=== PATIENT | female | born 1980 ===

== ENCOUNTER 2017-05-05 17:33 | Emergency (ER) | payer BC, OTHER ==
[2016-02-23 08:47] VITALS: BMI 24.7
== END 2017-05-05 21:20 | disposition home or self-care (01) ==
LOC: H.ER 17:33
DX: N20.1 Calculus of ureter (principal)

== ENCOUNTER 2017-05-05 21:15 | Observation (INO) | payer OTHER ==
[2017-05-05 23:37] VITALS: BMI 23.7
[2017-05-06] MEDS ORDERED: Sodium Chloride 0.9% 1,000 ML IV SCH (00:30)
[2017-05-06] MEDS ORDERED: Midazolam 2 MG/2 ML VIAL ONE (09:18)
[2017-05-06] MEDS ORDERED: Propofol 10 mg/ml Inj (20 ML) ONE (09:18)
[2017-05-06 10:04] LABS: GLUCOSE,RANDOM 102 mg/dL (65-105)
[2017-05-06 10:05] LABS: BLOOD UREA NITROGEN 14 mg/dl (7-17); CALCIUM 8.9 mg/dL (8.4-10.2); CARBON DIOXIDE 23 mmol/L (22-30); CHLORIDE 106 mmol/L (98-107); GFR AFRICAN-AMERICAN > 60; POTASSIUM 3.7 MMOL/L (3.6-5.0); SODIUM 140 mmol/l (132-148); TOTAL PROTEIN 7.3 G/DL (6.3-8.2)
[2017-05-06 10:06] LABS: ALB/GLOB RATIO 1.4 (1.0-2.1); BILIRUBIN,TOTAL 0.2 mg/dl (0.2-1.3)
[2017-05-06 10:07] LABS: ALKALINE PHOSPHATASE 80 U/L (38-126); ALT/SGPT 33 U/L (9-52); AST/SGOT 26 U/L (14-36)
[2017-05-06 11:02] LABS: BASO % 0.4 % (0.0-2.0); EOS # 0.1 K/uL (0.0-0.7); EOS % 0.9 % (0.0-4.0); HEMATOCRIT 36.7 % (34.0-47.0); LYMPH # 1.1 K/uL (1.0-4.3); LYMPH % 10.6 % (20.0-40.0); MEAN CELL VOLUME 87.8 fl (81.0-99.0); MEAN CORPUSCULAR HEMOGLOBIN 28.6 pg (27.0-31.0); MEAN CORPUSCULAR HGB CONC 32.6 g/dL (33.0-37.0); MEAN PLATELET VOLUME 9.2 fl (7.2-11.7); MONO # 0.5 K/uL (0.0-0.8); MONO % 4.8 % (0.0-10.0); NEUT # 8.5 K/uL (1.8-7.0); NEUT % 83.3 % (50.0-75.0); RED CELL DISTRIBUTION WIDTH 13.9 % (11.5-14.5); WHITE BLOOD COUNT 10.2 K/uL (4.8-10.8)
[2017-05-06] MEDS ORDERED: Chlorhexidine Gluconate 2OZ GEL TP ONE ×2 (11:52→12:25)
[2017-05-06] MEDS ORDERED: Iohexol 240 200 ML IJ ONE (11:53)
[2017-05-06] MEDS ORDERED: Sodium Chloride 0.9% 1,000 ML IV ONE (12:05)
--- NOTE | 2017-05-06 14:35 | RAD ---
PROCEDURE: Intraoperative Fluoroscopy. HISTORY: OR FINDINGS: Fluoroscopic assistance was provided. . Please refer to the operative report from for additional details.
[2017-05-06 14:36] VITALS: RESP 20
[2017-05-06] MEDS ORDERED: Oxycodone/Acetaminophen 5/325 mg Tab PO PRN (15:09)
--- NOTE | 2017-05-06 15:42 | CP.PCM.DIS ---
Provider - Provider Date of Admission: 05/05/17 21:15 Attending physician: Jose Alonso Primary care physician: Nighat Weston MD Consults: Urology : Dr Hmuphreys Time Spent in preparation of Discharge (in minutes): 25 Diagnosis - Discharge Diagnosis (1) Ureteral stone with hydronephrosis Status: Acute Hospital Course - Lab Results Lab Results: Most Recent Lab Values WBC 10.2 K/uL (4.8-10.8) 05/05/17 18:00 RBC 4.18 Mil/uL (3.80-5.20) 05/05/17 18:00 Hgb 12.0 g/dL (12.0-16.0) 05/05/17 18:00 Hct 36.7 % (34.0-47.0) 05/05/17 18:00 MCV 87.8 fl (81.0-99.0) 05/05/17 18:00 MCH 28.6 pg (27.0-31.0) 05/05/17 18:00 MCHC 32.6 g/dL (33.0-37.0) L 05/05/17 18:00 RDW 13.9 % (11.5-14.5) 05/05/17 18:00 Plt Count 253 K/uL (130-400) 05/05/17 18:00 MPV 9.2 fl (7.2-11.7) 05/05/17 18:00 Neut % (Auto) 83.3 % (50.0-75.0) H 05/05/17 18:00 Lymph % (Auto) 10.6 % (20.0-40.0) L 05/05/17 18:00 Mercer % (Auto) 4.8 % (0.0-10.0) 05/05/17 18:00 Eos % (Auto) 0.9 % (0.0-4.0) 05/05/17 18:00 Baso % (Auto) 0.4 % (0.0-2.0) 05/05/17 18:00 Neut # 8.5 K/uL (1.8-7.0) H 05/05/17 18:00 Lymph # 1.1 K/uL (1.0-4.3) 05/05/17 18:00 Mercer # 0.5 K/uL (0.0-0.8) 05/05/17 18:00 Eos # 0.1 K/uL (0.0-0.7) 05/05/17 18:00 Baso # 0.0 K/uL (0.0-0.2) 05/05/17 18:00 Sodium 140 mmol/l (132-148) 05/05/17 18:00 Potassium 3.7 MMOL/L (3.6-5.0) 05/05/17 18:00 Chloride 106 mmol/L (98-107) 05/05/17 18:00 Carbon Dioxide 23 mmol/L (22-30) 05/05/17 18:00 Anion Gap 15 (10-20) 05/05/17 18:00 BUN 14 mg/dl (7-17) 05/05/17 18:00 Creatinine 0.8 mg/dL (0.7-1.2) 05/05/17 18:00 Est GFR ( Amer) > 60 05/05/17 18:00 Est GFR (Non-Af Amer) > 60 05/05/17 18:00 Random Glucose 102 mg/dL (65-105) 05/05/17 18:00 Calcium 8.9 mg/dL (8.4-10.2) 05/05/17 18:00 Total Bilirubin 0.2 mg/dl (0.2-1.3) 05/05/17 18:00 AST 26 U/L (14-36) 05/05/17 18:00 ALT 33 U/L (9-52) 05/05/17 18:00 Alkaline Phosphatase 80 U/L (38-126) 05/05/17 18:00 Total Protein 7.3 G/DL (6.3-8.2) 05/05/17 18:00 Albumin 4.3 g/dL (3.5-5.0) 05/05/17 18:00 Globulin 3.0 gm/dL (2.2-3.9) 05/05/17 18:00 Albumin/Globulin Ratio 1.4 (1.0-2.1) 05/05/17 18:00 - Hospital Course Hospital Course: 36 y/o lady, no significant PMH came in bec of severe flank pain left. CT scan showed 8 mm left ureteral stone with Hydropnephrosis. Pt was admitted to Med Surg. She was started on IVF hydration and pain mgt. IV Ceftriaxone given. Urology was consulted- Dr Mattson. Pt then underwent Cystoscopy with Left Ureteral Stent Placement. Cleared by Dr Mattson for discharge. Pt to ff up with Urology for Lithotripsy as outpt. RX for Flomax, Vicodin and Macrobid prescibed by Dr Mattson for home . Discharge Exam - Head Exam Head Exam: ATRAUMATIC, NORMAL INSPECTION, NORMOCEPHALIC - Eye Exam Eye Exam: EOMI, Normal appearance, PERRL Pupil Exam: NORMAL ACCOMODATION - ENT Exam ENT Exam: Mucous Membranes Moist, Normal External Ear Exam - Neck Exam Neck exam: Full Rom - Respiratory Exam Respiratory Exam: NORMAL BREATHING PATTERN. absent: Respiratory Distress - Cardiovascular Exam Cardiovascular Exam: REGULAR RHYTHM, +S1, +S2 - GI/Abdominal Exam GI & Abdominal Exam: Normal Bowel Sounds, Soft, Tenderness (minimal left sided tenderness) - Extremities Exam Extremities exam: full ROM, normal capillary refill, normal inspection, pedal pulses present - Back Exam Back exam: CVA tenderness (L), CVA tenderness (R), FULL ROM, NORMAL INSPECTION. absent: paraspinal tenderness, vertebral tenderness - Neurological Exam Neurological exam: Alert, CN II-XII Intact, Oriented x3 - Psychiatric Exam Psychiatric exam: Normal Affect, Normal Mood - Skin Skin Exam: Dry, Normal Color, Warm Discharge Plan - Discharge Medications Prescriptions: Hydrocodone/Acetaminophen [Vicodin Es 300 mg-7.5 mg] 1 tab PO Q6 #20 tab Nitrofurantoin Macrocrystals [Macrobid] 100 mg PO BID #20 cap Tamsulosin HCl [Flomax] 0.4 mg PO DAILY #30 cap.er.24h - Follow Up Plan Condition: GOOD Disposition: HOME/ ROUTINE Additional Instructions: ff up with Dr Mattson next wk for further mgt of stone and removal stent ff up with PMD bel Referrals: Nighat Weston MD [Primary Care Provider] -
[2017-05-06 18:10] VITALS: BP 103/61; PULSE 66; TEMP 98.5; O2SAT 98
--- NOTE | 2017-05-07 15:16 | CT ---
PROCEDURE: CT abdomen and pelvis dated 05/05/2017 HISTORY: History: Left flank pain. Rule out stone. COMPARISON: None. TECHNIQUE: Contiguous axial images of the abdomen and without oral or intravenous contrast material. . Coronal and Sagittal reformats generated. Radiation dose: Total exam DLP = 468.37 mGy-cm. This CT exam was performed using one or more of the following dose reduction techniques: Automated exposure control, adjustment of the mA and/or kV according to patient size, and/or use of iterative reconstruction technique. FINDINGS: LOWER THORAX: Minor bibasilar atelectasis and or scarring. Lung bases are otherwise clear without infiltrate effusion or basilar pneumothorax. There appears to be some minimal LIVER: Unremarkable. No gross lesion or ductal dilatation. GALLBLADDER AND BILE DUCTS: Unremarkable. PANCREAS: Unremarkable. No mass. No ductal dilatation. SPLEEN: Unremarkable. No splenomegaly. ADRENALS: There are no adrenal lesions seen. KIDNEYS AND URETERS: There are multiple of punctate bilateral renal calculi. Prominent left renal pelvis an left ureter with and approximately calculus at the L5-S1 level which measures approximately 7.3 x 5.5 cm in the expected location of the distal left ureter at the L5-S1 level. . Clinical correlation with urinalysis. BLADDER: Urinary bladder is incompletely distended which may account for slight thick-walled appearance. Rule out cystitis. REPRODUCTIVE: Uterus and adnexal structures appear grossly unremarkable. APPENDIX: Normal-appearing air and debris filled appendix best seen on axial image number [id number]. No periappendiceal inflammatory changes. BOWEL: Evaluation of the bowel is limited due to the lack of oral contrast material. PERITONEUM: No fluid collection. No free air. Small fat containing umbilical hernia. LYMPH NODES: No significant/bulky adenopathy. VASCULATURE: Unremarkable. No aortic aneurysm. BONES: Chronic appearing anterior wedge deformity of the T11 and to a lesser degree T12 and T10 segments. Mild multilevel degenerative spondylosis of the lower thoracic and lumbar spine. OTHER FINDINGS: None. IMPRESSION: Nephrolithiasis as above. Approximately 7.3 x 5.5 mm of presumed calculus in the left distal ureter. Correlation with urinalysis. .
--- NOTE | 2017-06-06 08:18 | OP ---
DATE OF PROCEDURE: 05/06/2017 SURGEON: Kirk Mattson MD ANESTHESIOLOGIST: Jeffery Adan MD ANESTHESIA: General LMA PRE-OP DIAGNOSIS: The patient admitted to the hospital with obstructing left ureteral calculus. PROCEDURE: Cystoscopy Insertion of Stent Left DESCRIPTION: The patient brought to the OR, prepped and draped in usual manner. After general anesthesia given, #21 cystourethroscope inserted into the bladder. 0.35 wire was then inserted into the left orifice, intothe kidney. Double-J stent was placed over the wire and the wire removed. There was good placement of the stent. The patient tolerated the procedure well. POST-OP CONDITION: Left the OR in good condition. Kirk Mattson MD MTDD
== END 2017-05-06 19:30 | disposition home or self-care (01) ==
LOC: INTOOBSV 21:15 → H.ERHOLD 21:15 → UNDOADMIN 22:40 → H.PEDS 23:20 → H.ERHOLD 23:20
PROVIDERS: ADMIT Internal Medicine; ATTEND Internal Medicine
DX: N13.2 Hydronephrosis with renal and ureteral calculous obstruction (principal)

== ENCOUNTER 2017-05-17 12:17 | Emergency (ER) | payer OTHER ==
[2017-05-17 12:17] VITALS: BMI 23.7
[2017-05-17 12:28] VITALS: BP 111/75; PULSE 70; RESP 18; TEMP 98.1; O2SAT 99
--- NOTE | 2017-05-17 13:04 | ED PDOC ---
HPI: Female Pain Time Seen by Provider: 05/17/17 13:04 Chief Complaint (Nursing): Female Genitourinary Chief Complaint (Provider): back pain History Per: Patient Additional Complaint(s): Patient is status post ureteral stent placement on 05/06/2017 and presents to emergency department with persistent left flank pain. Patient contacted her urologist, Dr. Mattson who told her to come to ED if her pain worsened. Patient has been taking vicodin which has helped with the pain. She denies fever or chills, denies any nausea or vomiting. Patient is currently also taking macrobid and flomax. Past Medical History Reviewed: Historical Data, Nursing Documentation, Vital Signs Vital Signs: Last Vital Signs Temp 98.1 F 05/17/17 12:24 Pulse 70 05/17/17 12:24 Resp 18 05/17/17 12:24 BP 111/75 05/17/17 12:24 Pulse Ox 99 05/17/17 12:24 - Medical History PMH: No Chronic Diseases - Surgical History Surgical History: No Surg Hx - Family History Family History: States: No Known Family Hx - Living Arrangements Living Arrangements: With Family - Social History Current smoker - smoking cessation education provided: No Alcohol: None Drugs: Denies - Home Medications Home Medications: Ambulatory Orders Medication Instructions Recorded Hydrocodone/Acetaminophen [Vicodin 1 tab PO Q6 #20 tab 05/06/17 Es 300 mg-7.5 mg] Nitrofurantoin Macrocrystals 100 mg PO BID #20 cap 05/06/17 [Macrobid] Tamsulosin HCl [Flomax] 0.4 mg PO DAILY #30 cap.er.24h 05/06/17 - Allergies Allergies/Adverse Reactions: Allergies Allergy/AdvReac Type Severity Reaction Status Date / Time No Known Allergies Allergy Verified 05/05/17 23:37 Review of Systems ROS Statement: Except As Marked, All Systems Reviewed And Found Negative Constitutional: Negative for: Fever, Chills Gastrointestinal: Negative for: Nausea, Vomiting Genitourinary Female: Positive for: Dysuria. Negative for: Vaginal Discharge, Vaginal Bleeding Musculoskeletal: Positive for: Back Pain (left flank pain) Physical Exam - Reviewed Nursing Documentation Reviewed: Yes Vital Signs Reviewed: Yes - Physical Exam Appears: Positive for: Well, Non-toxic, Uncomfortable Skin: Negative for: Rash Eye Exam: Positive for: Normal appearance Cardiovascular/Chest: Positive for: Regular Rate, Rhythm Respiratory: Positive for: Normal Breath Sounds. Negative for: Respiratory Distress Gastrointestinal/Abdominal: Positive for: Soft. Negative for: Tenderness, Distended, Guarding, Rebound Back: Positive for: L CVA Tenderness (moderate). Negative for: R CVA Tenderness Extremity: Positive for: Normal ROM. Negative for: Pedal Edema Neurologic/Psych: Positive for: Alert, Oriented - Laboratory Results Result Diagrams: 05/17/17 13:30 05/17/17 13:30 Urine POC: Negative Urine dip results: Positive for: Leukocyte Esterase (trace), Blood (large) - ECG O2 Sat by Pulse Oximetry: 99 Pulse Ox Interpretation: Normal Medical Decision Making Medical Decision Makin36 year old with left flank pain and known kidney stone. Plan: CBC CMP UA Urine culture IVF IV toradol PO tylenol CT abd and pelvis without contrast from 05/06/17 shows: 7.3 x 5.5 mm left distal ureteral stone Call placed to Dr. Mattson. He states patient can return to same day surgery department in the morning for 10 am lithotripsy. OR is aware. Patient feels better after meds given and she agrees with plan. Disposition - Clinical Impression Clinical Impression: Ureteral stone - Patient ED Disposition Is Patient to be Admitted: No Counseled Patient/Family Regarding: Diagnosis, Need For Followup - Disposition Referrals: Kirk Mattson MD [Medical Doctor] - Disposition: Routine/Home Disposition Time: 15:52 Condition: STABLE Additional Instructions: DO NOT EAT OR DRINK ANYTHING AFTER MIDNIGHT. RETURN TO SAME DAY SURGERY DEPARTMENT TOMORROW MORNING AT 8 AM FOR YOUR SCHEDULED PROCEDURE. Instructions: Ureteral Stones (ED)
[2017-05-17] MEDS ORDERED: Sodium Chloride 0.9% 1,000 ML IV STA (13:10)
[2017-05-17 14:02] LABS: SQUAMOUS EPITHIAL 11 /hpf (0-5); URINE BACTERIA MOD (<OCC); URINE BILIRUBIN NEGATIVE (NEGATIVE); URINE BLOOD LARGE (NEGATIVE); URINE CLARITY SLIGHTY-CLOUDY (Clear); URINE COLOR YELLOW (YELLOW); URINE GLUCOSE (UA) NEG (Normal); URINE LEUKOCYTE ESTERASE MOD Leu/uL (Negative); URINE NITRATE NEGATIVE (NEGATIVE); URINE PROTEIN 100 mg/dL (NEGATIVE); URINE UROBILINOGEN 0.2-1.0 mg/dL (0.2-1.0)
[2017-05-17 14:04] LABS: BASO % 0.6 % (0.0-2.0); EOS # 0.2 K/uL (0.0-0.7); EOS % 2.8 % (0.0-4.0); HEMOGLOBIN 12.5 g/dL (12.0-16.0); LYMPH % 32.4 % (20.0-40.0); MEAN CELL VOLUME 87.3 fl (81.0-99.0); MEAN CORPUSCULAR HEMOGLOBIN 28.7 pg (27.0-31.0); MEAN CORPUSCULAR HGB CONC 32.8 g/dL (33.0-37.0); MEAN PLATELET VOLUME 8.6 fl (7.2-11.7); MONO # 0.6 K/uL (0.0-0.8); MONO % 9.4 % (0.0-10.0); NEUT # 3.3 K/uL (1.8-7.0); NEUT % 54.8 % (50.0-75.0); NRBC % 0.2 % (0.0-0.0); RBC 4.35 Mil/uL (3.80-5.20); RED CELL DISTRIBUTION WIDTH 13.7 % (11.5-14.5)
[2017-05-17 14:05] LABS: ALB/GLOB RATIO 1.3 (1.0-2.1); ALBUMIN 4.3 g/dL (3.5-5.0); ALT/SGPT 39 U/L (9-52); AST/SGOT 27 U/L (14-36); BLOOD UREA NITROGEN 12 mg/dl (7-17); GFR AFRICAN-AMERICAN > 60; GFR NON-AFRICAN AMERICAN > 60
[2017-05-17] MEDS ORDERED: cefTRIAXone (Rocephin) 1 gm Inj ONE (14:40)
== END 2017-05-17 16:05 | disposition home or self-care (01) ==
LOC: H.ER 12:17
DX: N20.1 Calculus of ureter (principal); R10.9 Unspecified abdominal pain

== ENCOUNTER 2017-05-18 08:19 | Day surgery (SDC) | payer OTHER ==
[2017-05-18 08:58] VITALS: BMI 22.1
[2017-05-18] MEDS ORDERED: Lactated Ringer's 1,000 ML IV ONE (09:27)
[2017-05-18] MEDS ORDERED: Midazolam 2 MG/2 ML VIAL ONE (09:30)
[2017-05-18] MEDS ORDERED: Rocuronium 10 mg/ml (5 ml) ONE (09:30)
[2017-05-18] MEDS ORDERED: ePHEDrine 50 mg/ml Inj ONE (09:30)
[2017-05-18] MEDS ORDERED: Propofol 10 mg/ml Inj (20 ML) ONE ×2 (09:30→11:11)
[2017-05-18] MEDS ORDERED: Succinylcholine 200 mg/10 ml Inj IV ONE (09:30)
[2017-05-18] MEDS ORDERED: Ciprofloxacin 400mg/200ml D5W 400 MG/200 ML BAG IVPB ONE (10:55)
[2017-05-18] MEDS ORDERED: Ciprofloxacin 400mg/200ml D5W IVPB ONE (11:05)
[2017-05-18] MEDS ORDERED: Dexamethasone 4 mg/1 ml ONE (11:10)
[2017-05-18] MEDS ORDERED: Lactated Ringer's 1,000 ML IV SCH (12:04)
[2017-05-18] MEDS ORDERED: Oxycodone/Acetaminophen 5/325 mg Tab PO PRN (12:17)
[2017-05-18] MEDS: HYDROmorphone 0.5 mg/0.5 ml ISec IVP PRN ×3 (12:20→12:55)
[2017-05-18 12:28] VITALS: RESP 18
[2017-05-18 14:23] VITALS: O2SAT 100
--- NOTE | 2017-05-18 15:20 | RAD ---
PROCEDURE: Intraoperative Fluoroscopy. HISTORY: CYSTOSCOPY FINDINGS: Fluoroscopic assistance was provided.
[2017-05-18] MEDS ORDERED: Oxycodone/Acetaminophen 5/325 mg Tab PO ONE (15:25)
[2017-05-19 11:53] VITALS: BP 114/67; PULSE 84; TEMP 98.9
--- NOTE | 2017-05-22 14:03 | OP ---
DATE: 05/18/2017 DESCRIPTION OF PROCEDURE: The patient previously had stent insertion for a mid ureteral calculus obstructing stone. A double J stent was then inserted at that time. The patient was brought back to the OR on 05/18/2017 for exploration for the left ureteral calculus. The patient was prepped and draped in the usual manner after general anesthesia was given. Exploration revealed calculus in the lower distal portion of the ureter. Rigid ureteroscope was then inserted after the stent was removed over a wire. The calculus was noted, it was lasered in one fragment and the second fragment which was large was engaged with a stone basket and removed through the ureter and out of the bladder. There was no other calculi noted in the left ureter. The patient tolerated the procedure well, left the OR in good condition. Kirk Mattson MD
== END 2017-05-18 19:12 | disposition home or self-care (01) ==
LOC: H.OPSURG 08:19
PROVIDERS: ATTEND Urology
DX: N20.1 Calculus of ureter (principal)